=== PATIENT | female | born 1945 | race Two or more races ===

== ENCOUNTER 2017-06-09 00:30 | Observation (INO) | payer MEDICARE, OTHER ==
[~2017-06-09] VITALS: Ht 165.1 cm; Wt 59.0 kg
[~2017-06-09 00:30] MED LIST: ASPI-1012 PO; ATOR40TA69 PO; CLOP75TA14 PO; FISH OIL PO; METF500T6 PO; METO-408 PO; MULT-1203 PO
[2017-06-09 01:22] LABS: APPEARANCE,URINE Clear (CLEAR); BILIRUBIN,URINE Negative (NEGATIVE); COLOR,URINE Yellow (YELLOW); GLUCOSE, URINE (UA) Negative (NEGATIVE); KETONES,URINE Negative (NEGATIVE); LEUKOCYTE ESTERASE ,URINE Trace (NEGATIVE); NITRATE,URINE Negative (NEGATIVE); OCCULT BLOOD,URINE Trace (NEGATIVE); PROTEIN,URINE Negative (NEGATIVE); UROBILINOGEN,URINE 0.2 mg/dL (0.2-1.0)
[2017-06-09 01:27] LABS: BACTERIA,URINE None Seen /HPF (None Seen); RBC,URINE 0-1 /HPF (0-1); WBC,URINE 0-1 /HPF (0-1)
[2017-06-09 01:28] LABS: MUCUS,URINE Few LPF (None Seen); SQUAMOUS EPITHELIAL CELL,UR Moderate /LPF (0-2)
[2017-06-09] MEDS ORDERED: SODIUM CHLORIDE 0.9% 1000ML 2,000 ML IV ONE (01:40)
[2017-06-09 02:09] LABS: BASOPHILS % (AUTO) 0.5 % (0.0-5.0); EOSINOPHILS % (AUTO) 4.3 % (0.0-8.0); HEMATOCRIT 30.3 % (36-48); LYMPHOCYTES % (AUTO) 30.1 % (21.0-51.0); MEAN CORPUSCULAR HGB CONC 32.7 g/dL (32.0-36.0); MEAN CORPUSCULAR VOLUME 70.3 fL (79-99); MONOCYTES % (AUTO) 7.5 % (3.0-13.0); NEUTROPHILS % (AUTO) 57.6 % (40.0-77.0); NUCLEATED RED BLOOD CELLS 0.2 % (0.0-0.19); PLATELET COUNT (AUTO) 345 K/uL (130-400); RED BLOOD CELL COUNT(AUTO) 4.32 MIL/uL (4.00-5.50); RED CELL DISTRIBUTION WIDTH 16.4 % (11.0-15.5); WHITE BLOOD COUNT (AUTO) 6.4 K/uL (4.8-10.8)
[2017-06-09 02:14] LABS: CREATININE 1.1 mg/dL (0.5-1.5)
[2017-06-09 02:18] LABS: ALBUMIN 3.5 g/dL (3.5-5.0); BILIRUBIN,TOTAL 0.3 mg/dL (0.2-1.0); TOTAL PROTEIN, SERUM 7.7 g/dL (6.0-8.3)
[2017-06-09] MEDS ORDERED: MORPHINE SULFATE 4 MG/1ML SYG ONE ×2 (03:20→08:08)
[2017-06-09] MEDS ORDERED: ONDANSETRON HCL 4 MG/2 ML VIAL ONE (03:20)
[2017-06-09 11:49] VITALS: BP 147/65
[2017-06-09] MEDS ORDERED: ATOR40TA71 PO (11:58)
[2017-06-09] MEDS ORDERED: LOSA50TA37 PO (11:58)
[2017-06-09] MEDS ORDERED: SULF1TAB3 PO (11:58)
[2017-06-09] MEDS ORDERED: PHEN-948 PO (11:58)
[2017-06-09] MEDS ORDERED: ASPI-1181 PO (12:00)
[2017-06-09] MEDS ORDERED: HYDROMORPHONE HCL 0.5 MG/0.5 ML ML IVP PRN (13:45)
[2017-06-09] MEDS ORDERED: ONDANSETRON HCL 4 MG/2 ML VIAL IVP PRN (13:45)
[2017-06-09] MEDS ORDERED: KETOROLAC TROMETHAMINE 15MG/ML ONE (14:40)
[2017-06-09] MEDS ORDERED: KETOROLAC TROMETHAMINE 15MG/ML IM PRN (14:45)
[2017-06-09] MEDS: 1/2 NORMAL SALINE 1,000 ML IV SCH (14:46)
[2017-06-09 16:00] VITALS: BP 153/69
[2017-06-09] MEDS: INSULIN HUMULIN R 100 UNIT/ML 3ML SQ SCH ×2 (16:30→20:54)
[2017-06-09 19:45] VITALS: BP 155/60
[2017-06-09] MEDS ORDERED: ATORVASTATIN CALCIUM 40 MG TABLET PO SCH (21:00)
[2017-06-09 23:13] VITALS: BP 135/61
[2017-06-10] MEDS: 1/2 NORMAL SALINE 1,000 ML IV SCH ×3 (02:05→11:15)
[2017-06-10 03:00] VITALS: BP 128/66
[2017-06-10 03:41] LABS: HEMATOCRIT 28.4 % (36-48); MEAN CORPUSCULAR HEMOGLOBIN 23.2 pg (27.0-33.0); MEAN CORPUSCULAR HGB CONC 32.8 g/dL (32.0-36.0); MEAN CORPUSCULAR VOLUME 70.8 fL (79-99); PLATELET COUNT (AUTO) 306 K/uL (130-400); RED BLOOD CELL COUNT(AUTO) 4.01 MIL/uL (4.00-5.50); RED CELL DISTRIBUTION WIDTH 16.7 % (11.0-15.5); WHITE BLOOD COUNT (AUTO) 7.5 K/uL (4.8-10.8)
[2017-06-10 03:59] LABS: ALBUMIN 2.8 g/dL (3.5-5.0); BILIRUBIN,TOTAL 0.4 mg/dL (0.2-1.0); CREATININE 0.9 mg/dL (0.5-1.5); POTASSIUM 4.5 mmol/L (3.5-5.1); TOTAL PROTEIN, SERUM 6.6 g/dL (6.0-8.3)
[2017-06-10] MEDS: INSULIN HUMULIN R 100 UNIT/ML 3ML SQ SCH (06:27)
[2017-06-10 07:00] VITALS: BP 124/62
[2017-06-10] MEDS ORDERED: PANTOPRAZOLE SODIUM 40 MG TABLET.DR PO SCH (09:00)
[2017-06-10] MEDS ORDERED: LOSARTAN 50 MG TABLET PO SCH (09:00)
[2017-06-10 12:00] VITALS: BP 128/60
[2017-06-10 16:00] VITALS: BP 139/69
== END 2017-06-10 20:00 | disposition home or self-care (01) ==
LOC: EDH 00:30 → EDHIP 08:40 → 3BH 11:20
PROVIDERS: ADMIT Internal Medicine; ATTEND Internal Medicine
DX: K85.90 Acute pancreatitis without necrosis or infection, unspecified (principal); J44.9 Chronic obstructive pulmonary disease, unspecified; E11.9 Type 2 diabetes mellitus without complications; E78.5 Hyperlipidemia, unspecified; I10 Essential (primary) hypertension; I25.10 Atherosclerotic heart disease of native coronary artery without angina pectoris; Z79.52 Long term (current) use of systemic steroids; J84.116 Cryptogenic organizing pneumonia; D50.9 Iron deficiency anemia, unspecified; M81.0 Age-related osteoporosis without current pathological fracture; Z95.5 Presence of coronary angioplasty implant and graft
CPT/HCPCS: 36415 ×2; 74176; 76705; 78227; 80053 ×2; 80061; 81001; 82150; 82948 ×5; 83690 ×2; 85025; 85027; 93005; 96360; 96361 ×2; 99285; A4218; A9537; G0378 ×35; J1885; J2270 ×2; J2405; J7030

== ENCOUNTER → 2017-08-18 | Outpatient (CLI) | payer OTHER ==
[~2017-08-18] MED LIST changes: -ASPI-1012 PO; +ASPI-1181 PO; -ATOR40TA69 PO; +ATOR40TA71 PO; -CLOP75TA14 PO; -FISH OIL PO; +LOSA50TA37 PO; -METO-408 PO; -MULT-1203 PO; +PHEN-948 PO; +SULF1TAB3 PO
== END | disposition home or self-care (01) ==
LOC: RAH 08:36
PROVIDERS: ATTEND Internal Medicine Cardiovascular Disease
DX: I25.9 Chronic ischemic heart disease, unspecified (principal); I25.10 Atherosclerotic heart disease of native coronary artery without angina pectoris
CPT/HCPCS: 78452; 93017; A9500 ×2

== ENCOUNTER 2020-03-13 05:52 | Observation (INO) | payer OTHER ==
[2020-03-09 09:33] LABS: BASOPHILS % (AUTO) 0.6 % (0.0-5.0); EOSINOPHILS % (AUTO) 2.7 % (0.0-8.0); HEMATOCRIT 33.2 % (36-48); LYMPHOCYTES % (AUTO) 19.9 % (21.0-51.0); MEAN CORPUSCULAR HEMOGLOBIN 24.1 pg (27.0-33.0); MEAN CORPUSCULAR HGB CONC 30.7 g/dL (32.0-36.0); MEAN CORPUSCULAR VOLUME 78.3 fL (79-99); MONOCYTES % (AUTO) 5.6 % (3.0-13.0); NEUTROPHILS % (AUTO) 70.9 % (40.0-77.0); PLATELET COUNT (AUTO) 306 K/uL (130-400); RED BLOOD CELL COUNT(AUTO) 4.24 MIL/uL (4.00-5.50); RED CELL DISTRIBUTION WIDTH 16.1 % (11.0-15.5); WHITE BLOOD COUNT (AUTO) 8.8 K/uL (4.8-10.8)
[2020-03-09 09:37] LABS: APPEARANCE,URINE Clear (CLEAR); BILIRUBIN,URINE Negative (NEGATIVE); COLOR,URINE Yellow (YELLOW); GLUCOSE, URINE (UA) Negative (NEGATIVE); KETONES,URINE Negative (NEGATIVE); LEUKOCYTE ESTERASE ,URINE Large (NEGATIVE); NITRATE,URINE Positive (NEGATIVE); OCCULT BLOOD,URINE Negative (NEGATIVE); PH,URINE 7.5 (5.0-8.0); PROTEIN,URINE Negative (NEGATIVE); UROBILINOGEN,URINE 0.2 mg/dL (0.2-1.0)
[2020-03-09 09:41] LABS: BACTERIA,URINE Rare /HPF (None Seen); RBC,URINE 0-1 /HPF (0-1); SQUAMOUS EPITHELIAL CELL,UR Rare /HPF (0-2); WBC,URINE 0-1 /HPF (0-1)
[2020-03-09 09:42] LABS: CREATININE 0.9 mg/dL (0.5-1.5); POTASSIUM 4.5 mmol/L (3.5-5.1)
[2020-03-09 09:46] LABS: INR 0.88 (0.85-1.15); PARTIAL THROMBOPLASTIN TIME 25.4 SEC (26.3-35.5); PROTHROMBIN TIME 9.6 SEC (9.6-11.6)
[2020-03-09 10:32] VITALS: BP 145/75
--- NOTE | 2020-03-10 10:55 | NUR ---
labs abnormal labs and urine faxed and reported to Dr. Flower Longo message left with Jamshid. waiting for call back
--- NOTE | 2020-03-10 14:44 | NUR ---
lab received call back pt was started on Levaquin for positive urine test. patient to start antibiotic today as per Shell at DR Longo office. patient was called to inform her to please start new med as prescribed . she verbalized understanding.
[~2020-03-13] VITALS: Ht 167.6 cm; Wt 53.3 kg
[2020-03-13] VITALS (11 sets, daily range): BP systolic 121–144; BP diastolic 54–94
[~2020-03-13 05:52] MED LIST changes: -ASPI-1181 PO; +ASPI-1443 PO; +FE F1CAP33 PO; -LOSA50TA37 PO; +LOSA50TA64 PO; +METF-444 PO; -METF500T6 PO; -PHEN-948 PO; +SODIUM CHLORIDE 0.9% 500ML 500 ML IV SCH; -SULF1TAB3 PO
[2020-03-13] MEDS ORDERED: SODIUM CHLORIDE 0.9% 1000ML 1,000 ML IV ONE (08:02)
[2020-03-13] MEDS ORDERED: NITROGLYCERIN 2 MG/VIAL VIAL IV ONE (08:57)
[2020-03-13] MEDS ORDERED: LIDOCAINE HCL 2% 20ML ONE (08:57)
[2020-03-13] MEDS ORDERED: BIVALIRUDIN 250 MG/VIAL IV ONE (08:57)
[2020-03-13] MEDS ORDERED: IOHEXOL-350 50ML VIAL IV ONE (08:58)
[2020-03-13] MEDS ORDERED: IOHEXOL 350 MG/ML 100ML INFUS..BTL IV ONE (08:58)
[2020-03-13] MEDS ORDERED: FENTANYL CITRATE PF 50 MCG/1 ML 2ML VIAL ONE ×2 (10:03→12:18)
[2020-03-13] MEDS ORDERED: LABETALOL HCL 5 MG/ML 20ML VIAL IV ONE (10:18)
[2020-03-13] MEDS ORDERED: TICAGRELOR 90 MG TABLET ONE (10:34)
[2020-03-13] MEDS ORDERED: PRASUGREL HCL 10 MG TABLET ONE (10:35)
[2020-03-13] MEDS ORDERED: ASPIRIN 325MG EC TAB 325 MG TABLET.DR PO ONE (10:35)
[2020-03-13] MEDS ORDERED: ONDANSETRON HCL 4 MG/2 ML VIAL IVP PRN (12:15)
[2020-03-13] MEDS ORDERED: DEXTROSE 50%-WATER 50 ML DISP.SYRIN IV PRN (12:15)
[2020-03-13] MEDS ORDERED: SODIUM CHLORIDE 0.9% 1000ML 1,000 ML IV SCH (12:15)
[2020-03-13] MEDS ORDERED: MIDAZOLAM HCL 1 MG/ML 2ML VIAL ONE (12:24)
--- NOTE | 2020-03-13 13:20 | NUR ---
RETURNED FROM BUILDING ATTENDANT VIA BED ACCOMPANIED BY Syed CARROLL RN. PT. AAOX3, RESP.'S EVEN AND UNLABORED. DENIES ANY C/O SOB, DENIES ANY CURRENT PAIN. INSTRUCTED ON STRICT BR PER MD ORDERS, VERBALIZED UNDERSTANDING. RIGHT GROIN WITH LIGHT DRSG IN PLACE, D/I; AREA SOFT, NO ECCHYMOSIS OR HEMATOMA NOTED. FOOT WARM, PP (+). DENIES ANY C/O NUMBNESS OR TINGLING TO FEET. BED PLACED IN REVERSE [place] POSITION. CALL LIGHT WITHIN REACH, VERBALIZED ABILITY TO USE. SIDE RAILS UP X3.
--- NOTE | 2020-03-13 15:46 | NUR ---
DR. Yong MUÑOZ IN ROOM ASSESSING PT.'S RIGHT FEMORAL AREA AND RIGHT PEDAL PULSE; ALSO SPEAKING WITH PT. RE:[facility]. QUESTIONS ANSWERED BY DR. MUÑOZ.
[2020-03-13] MEDS: INSULIN HUMULIN R 100 UNIT/ML 3ML SQ SCH ×2 (16:30→21:00)
--- NOTE | 2020-03-13 18:20 | NUR ---
SLIGHT AREA OF FIRMNESS TO RIGHT GROIN, TENDER ON PALPATION; NO HEMATOMA. MANUAL PRESSURE APPLIED FOR TEN MINUTES. FIRMNESS RESOLVED. INSTRUCTED ON CONTINUED BR, VERBALIZED UNDERSTANDING. CALL LIGHT WITHIN REACH, VERBALIZED ABILITY TO USE.
[2020-03-13] MEDS ORDERED: ATORVASTATIN CALCIUM 40 MG TABLET PO SCH (21:00)
[2020-03-14 00:01] VITALS: BP 134/55
[2020-03-14 04:08] VITALS: BP 139/65
[2020-03-14 06:02] LABS: BASOPHILS % (AUTO) 0.5 % (0.0-5.0); EOSINOPHILS % (AUTO) 2.5 % (0.0-8.0); HEMATOCRIT 28.1 % (36-48); LYMPHOCYTES % (AUTO) 20.6 % (21.0-51.0); MEAN CORPUSCULAR HEMOGLOBIN 23.3 pg (27.0-33.0); MEAN CORPUSCULAR HGB CONC 30.6 g/dL (32.0-36.0); MEAN CORPUSCULAR VOLUME 76.2 fL (79-99); MONOCYTES % (AUTO) 7.7 % (3.0-13.0); NEUTROPHILS % (AUTO) 68.5 % (40.0-77.0); PLATELET COUNT (AUTO) 248 K/uL (130-400); RED BLOOD CELL COUNT(AUTO) 3.69 MIL/uL (4.00-5.50); RED CELL DISTRIBUTION WIDTH 15.7 % (11.0-15.5); WHITE BLOOD COUNT (AUTO) 8.4 K/uL (4.8-10.8)
[2020-03-14] MEDS ORDERED: IRON SUCROSE COMPLEX 100 MG in SODIUM CHLORIDE 0.9% 50 ML IV SCH (06:15)
[2020-03-14 06:19] LABS: ALBUMIN 2.9 g/dL (3.5-5.0); BILIRUBIN,TOTAL 0.4 mg/dL (0.2-1.0); CREATININE 0.8 mg/dL (0.5-1.5); POTASSIUM 4.1 mmol/L (3.5-5.1); TOTAL PROTEIN, SERUM 6.7 g/dL (6.0-8.3)
[2020-03-14] MEDS: INSULIN HUMULIN R 100 UNIT/ML 3ML SQ SCH ×2 (06:19→11:41)
[2020-03-14 07:36] VITALS: BP 131/60
[2020-03-14] MEDS ORDERED: LOSARTAN 50 MG TABLET PO SCH (09:00)
[2020-03-14] MEDS ORDERED: PRASUGREL HCL 10 MG TABLET PO SCH (09:00)
[2020-03-14] MEDS ORDERED: FE FUMARATE/FA/MV, MIN COMB#15 1 TAB PO SCH (09:00)
[2020-03-14] MEDS ORDERED: ASPIRIN 81 MG EC TAB PO SCH (09:00)
[2020-03-14] MEDS ORDERED: PRAS10TA9 PO (09:35)
[2020-03-14 09:48] LABS: CHOLESTEROL 120 mg/dL (<200); HDL CHOLESTEROL 54 mg/dL (35-85); LDL DIRECT 54 mg/dL (0-99); TRIGLYCERIDES 91 mg/dL (30-200)
--- NOTE | 2020-03-14 13:01 | NUR ---
DISCHARGE discussed discharge instructions with pt and voices understanding ,iv DCd no bleeding observed telemetry pack removed pt and denies questions
--- NOTE | 2020-03-14 16:32 | NUR ---
1149 pt signed GEORGE Letter, I faxed GEORGE Letter to [phone] and placed in chart under consent tab
== END 2020-03-14 15:23 | disposition home or self-care (01) ==
LOC: DAH 05:52 → DAHIP 05:53 → DAH 05:53 → 4AH 13:59
PROVIDERS: ADMIT Internal Medicine; ATTEND Internal Medicine
DX: I25.119 Atherosclerotic heart disease of native coronary artery with unspecified angina pectoris (principal); I12.9 Hypertensive chronic kidney disease with stage 1 through stage 4 chronic kidney disease, or unspecified chronic kidney disease; E11.22 Type 2 diabetes mellitus with diabetic chronic kidney disease; N18.2 Chronic kidney disease, stage 2 (mild); D50.9 Iron deficiency anemia, unspecified; E78.5 Hyperlipidemia, unspecified; N39.0 Urinary tract infection, site not specified; I25.2 Old myocardial infarction; Z79.899 Other long term (current) drug therapy
CPT/HCPCS: 36415 ×2; 71045; 76882; 80048; 80053; 80061; 81001; 82728; 82948 ×5; 83540; 83550; 85025 ×2; 85610; 85730; 87077; 87088; 87186; 92921; 93005; 93458; 96361 ×2; 96365; A4215; A4216; A4221; A4222; A4223 ×3; A4606; A4663; C1725 ×2; C1760 ×2; C1769; C1874 ×2; C1887 ×2; C1894 ×2; C9600 ×2; G0378 ×27; J0583; J1644 ×2; J1756; J1815; J2250; J3010 ×2; J3490 ×3; J7030 ×2; Q9965 ×2; Q9967 ×2; 99156; 99157

== ENCOUNTER → 2020-09-28 | Outpatient (CLI) | payer OTHER ==
[~2020-09-28] MED LIST changes: +PRAS10TA9 PO; -SODIUM CHLORIDE 0.9% 500ML 500 ML IV SCH
== END | disposition home or self-care (01) ==
LOC: RAH 10:44
PROVIDERS: ATTEND Podiatrist
DX: I70.213 Atherosclerosis of native arteries of extremities with intermittent claudication, bilateral legs (principal); B35.1 Tinea unguium; M20.41 Other hammer toe(s) (acquired), right foot; E11.40 Type 2 diabetes mellitus with diabetic neuropathy, unspecified; E11.51 Type 2 diabetes mellitus with diabetic peripheral angiopathy without gangrene
CPT/HCPCS: 93922

== ENCOUNTER → 2021-12-20 | Outpatient (CLI) | payer OTHER | END | disposition home or self-care (01) | LOC: SHCH 13:00 | PROVIDERS: ATTEND Internal Medicine Cardiovascular Disease | DX: R09.89 Other specified symptoms and signs involving the circulatory and respiratory systems (principal); I65.23 Occlusion and stenosis of bilateral carotid arteries | CPT/HCPCS: 93880 ==

== ENCOUNTER → 2021-12-21 | Outpatient (CLI) | payer OTHER ==
[~2021-12-21] MED LIST changes: +REGADENOSON 0.4 MG/5 ML PF SYG IVP SCH
== END | disposition home or self-care (01) ==
LOC: SHCH 08:21
PROVIDERS: ATTEND Internal Medicine Cardiovascular Disease
DX: R07.9 Chest pain, unspecified (principal)
CPT/HCPCS: 78452; 96374; 93017; J2785; A9500 ×2

== ENCOUNTER → 2022-10-28 | Outpatient (CLI) | payer OTHER ==
[~2022-10-28] MED LIST changes: -REGADENOSON 0.4 MG/5 ML PF SYG IVP SCH
[2022-10-28 16:28] LABS: BASOPHILS % (AUTO) 0.5 % (0.0-5.0); EOSINOPHILS % (AUTO) 2.2 % (0.0-8.0); HEMATOCRIT 31.1 % (36-48); MEAN CORPUSCULAR HGB CONC 30.5 g/dL (32.0-36.0); MEAN CORPUSCULAR VOLUME 78.5 fL (79-99); MONOCYTES % (AUTO) 6.9 % (3.0-13.0); NEUTROPHILS % (AUTO) 63.1 % (40.0-77.0); PLATELET COUNT (AUTO) 343 K/uL (130-400); RED BLOOD CELL COUNT(AUTO) 3.96 MIL/uL (4.00-5.50); RED CELL DISTRIBUTION WIDTH 15.2 % (11.0-15.5); WHITE BLOOD COUNT (AUTO) 8.6 K/uL (4.8-10.8)
[2022-10-28 16:51] LABS: % IRON SATURATION 7.6 % (22-44)
[2022-10-28 17:38] LABS: FERRITIN 51 ng/mL (15-150)
== END | disposition home or self-care (01) ==
LOC: LAB 15:54
PROVIDERS: ATTEND Internal Medicine Cardiovascular Disease
DX: D64.9 Anemia, unspecified (principal); I25.10 Atherosclerotic heart disease of native coronary artery without angina pectoris; I10 Essential (primary) hypertension; E78.5 Hyperlipidemia, unspecified; Z79.899 Other long term (current) drug therapy; Z95.5 Presence of coronary angioplasty implant and graft
CPT/HCPCS: 36415; 82607; 82728; 82746; 83540; 83550; 85025; 85045